=== PATIENT | male | born 1975 | race Caucasian/White ===

== ENCOUNTER → 2024-10-11 | Outpatient (CLI) | payer OTHER, SELFPAY ==
--- NOTE | 2024-10-11 14:29 | RAD_ITS ---
PROCEDURE: HAND MIN 3 VIEWS 10/11/2024 REASON FOR EXAM: PAIN TECHNIQUE: Right hand three views COMPARISON: None FINDINGS: There is no fracture or dislocation. There is no erosions. Joint spaces are maintained. Mineralization is normal. There is no visible soft tissue abnormality or radiopaque foreign body. RAD/Hand Min 3 Views IMPRESSION: No fracture or dislocation is identified. Reading Location: [facility]
--- NOTE | 2024-10-11 14:29 | RAD_ITS ---
PROCEDURE: HAND MIN 3 VIEWS 10/11/2024 REASON FOR EXAM: PAIN TECHNIQUE: Left hand three views COMPARISON: None FINDINGS: A ring is noted in the 4th digit. There is no fracture or dislocation. The joint spaces are maintained. There is no erosive disease. Mineralization is normal. There is no visible radiopaque foreign body or focal soft tissue abnormality. RAD/Hand Min 3 Views IMPRESSION: No fracture or dislocation is identified. Reading Location: [facility]
[2024-10-11 18:01] LABS: Hematocrit 44.4 % (40-54); Hemoglobin 15.3 g/dL (13.0-16.5); Immature Granulocytes Count 0.020 X10^3/uL (0.0-0.0); Mean Corp Hgb Conc 34.5 g/dL (32-36); Mean Corpuscular Volume 86.5 fL (80-94); Mean Platelet Vol. 10.0 fl (6.2-12.0); NRBC Flagged by Analyzer 0 % (0-5); Platelet Count 291 K/mm3 (150-450); RBC Distribution Width CV 12.2 % (11.6-14.6); RBC Distribution Width SD 39.0 fl (35.1-43.9); Red Blood Count 5.13 M/mm3 (4.6-6.2); White Blood Count 8.2 K/mm3 (4.4-11.0)
[2024-10-11 18:51] LABS: AST(SGOT) 25 U/L (<=37); Alanine Aminotransfer ALT/SGPT 45 U/L (<=46); Albumin, Serum 4.7 g/dL (3.5-5.0); Alkaline Phosphatase 53 U/L (40-129); Anion Gap 17 (5-15); BUN 13 mg/dL (4-19); BUN/Creat Ratio 13.3 RATIO (10-20); Calcium,Total 10.0 mg/dL (7.6-11.0); Carbon Dioxide 23.0 mmol/L (21.0-32.0); Chloride 98 mmol/L (98-108); Globulin 3.1 g/dL (2.2-4.2); Glucose 86 mg/dL (70-99); Hepatitis B Surface Antigen Nonreactive (Nonreactive); Hepatitis C Antibody Nonreactive (Nonreactive); Potassium 3.7 mmol/L (3.3-5.1)
[2024-10-11 18:54] LABS: CRP < 3.00 mg/L (0.0-3.0)
[2024-10-13 15:09] LABS: ANTINUCLEAR ANTIBODIES DIRECT Negative (Negative)
== END | disposition home or self-care (01) ==
LOC: MTLAB 14:27
PROVIDERS: PCP Family Medicine; Referring Provider Internal Medicine Rheumatology; Visit Provider Internal Medicine Rheumatology
DX: M06.4 Inflammatory polyarthropathy (principal); I10 Essential (primary) hypertension
CPT/HCPCS: 36415; 73130; 80053; 85025; 85652; 86038; 86140; 86200; 86431; 86706; 86803; 87340